=== PATIENT | male | born 1945 | race Caucasian/White ===

== ENCOUNTER 2018-01-08 07:58 | Outpatient (CLI) | payer OTHER, MEDICARE ==
[2018-01-08] VITALS (12 sets, daily range): BP systolic 119–161; BP diastolic 66–85
[~2018-01-08 07:58] MED LIST: ASPI-1071 PO; FLO0.4C PO; LISI-604 PO; METO-539 PO; MULT-1085 PO; TICA90TA PO; UBID1CAP PO; VILA40TA PO; ZOC40T PO
[2018-01-08] MEDS ORDERED: regadenoson 0.4mg/5ml syringe IV ONE ×2 (08:55→09:21)
[2018-01-08] MEDS ORDERED: nitroGLYCERIN 0.4mg SUBLingual tab SL PRN (09:00)
[2018-01-08] MEDS ORDERED: CAFFEINE CITRATE 60 MG/3 ML injection vial IV ONE ×2 (09:00→09:21)
[2018-01-08] MEDS ORDERED: CLOP75TA33 PO (11:39)
[2018-01-08] MEDS ORDERED: ROSU40TA PO (11:42)
[2018-01-08] MEDS ORDERED: LOSA50TA3 PO (11:42)
[2018-01-08] MEDS ORDERED: FLO0.4C PO (11:42)
== END 2018-01-08 23:59 | disposition home or self-care (01) ==
LOC: RAD 07:58
PROVIDERS: ATTEND Internal Medicine Interventional Cardiology
DX: I25.10 Atherosclerotic heart disease of native coronary artery without angina pectoris (principal); R53.83 Other fatigue; I10 Essential (primary) hypertension; G24.9 Dystonia, unspecified; Z88.5 Allergy status to narcotic agent; Z87.891 Personal history of nicotine dependence
CPT/HCPCS: 78452; 93017; A9500

== ENCOUNTER 2018-02-07 13:53 | Day surgery (SDC) | payer OTHER, MEDICARE ==
[2018-02-06 09:47] LABS: BASOPHILS % (AUTO) 0.5 % (0-1); EOSINOPHILS # (AUTO) 0.1 X10'3 (0-0.9); EOSINOPHILS % (AUTO) 2.4 % (0-6); HEMATOCRIT 46.3 % (42.0-52.0); HEMOGLOBIN 15.6 g/dl (14.0-17.9); LYMPHOCYTES # (AUTO) 0.9 X10'3 (1.1-4.8); LYMPHOCYTES % (AUTO) 23.2 % (21-51); MEAN CORPUSCULAR HGB CONC 33.8 % (33.0-36.5); MEAN CORPUSCULAR VOLUME 91.7 FL (78-98); MEAN PLATELET VOLUME 7.5 FL (7.4-10.4); MONOCYTES # (AUTO) 0.4 X10'3 (0-0.9); MONOCYTES % (AUTO) 10.4 % (2-12); NEUTROPHILS # (AUTO) 2.5 X10'3 (1.8-7.7); NEUTROPHILS % (AUTO) 63.5 % (42-75); PLATELET COUNT 247 X10'3 (140-440); RED BLOOD COUNT 5.05 X10'6 (4.70-6.10); RED CELL DISTRIBUTION WIDTH 13.7 % (11.5-14.5)
[2018-02-06 09:57] LABS: ALBUMIN 3.8 G/DL (3.4-5.0); ANION GAP 7 (8-16); BLOOD UREA NITROGEN 22 MG/DL (7-18); BUN/CREATININE RATIO 20.8 (5.4-32.0); CHLORIDE 102 MMOL/L (99-107); CREATININE 1.06 MG/DL (0.60-1.10); GLUCOSE 125 MG/DL (70-104); POTASSIUM 4.2 MMOL/L (3.5-5.1); SODIUM 137 MMOL/L (135-145); TOTAL CARBON DIOXIDE 28.3 MMOL/L (24-32); eGFR 69 ML/MIN
[2018-02-06 09:58] LABS: PARTIAL THROMBOPLASTIN TIME 26 SECONDS (22-32); PROTHROMBIN TIME 9.9 SECONDS (9.0-12.0)
[2018-02-07] VITALS (8 sets, daily range): BP systolic 117–150; BP diastolic 59–77
[~2018-02-07] VITALS: Ht 195.6 cm; Wt 98.7 kg
[~2018-02-07 13:53] MED LIST changes: -ASPI-1071 PO; +CLOP75TA33 PO; -LISI-604 PO; +LOSA50TA3 PO; -METO-539 PO; -MULT-1085 PO; +ROSU40TA PO; -TICA90TA PO; -UBID1CAP PO; -ZOC40T PO
[2018-02-07] MEDS ORDERED: LORazepam 0.5 MG tablet PO PRN (14:15)
[2018-02-07] MEDS ORDERED: normal saline 1000ml 1,000 ML IV SCH (14:15)
[2018-02-07] MEDS ORDERED: diphenhydrAMINE 25mg capsule PO PRN (14:15)
[2018-02-07] MEDS ORDERED: ASPI81TA52 PO (14:26)
[2018-02-07] MEDS ORDERED: DIPH25CA83 PO (14:28)
[2018-02-07] MEDS ORDERED: RANI150T44 PO (14:28)
[2018-02-07] MEDS ORDERED: PRE5T PO (14:30)
[2018-02-07] MEDS ORDERED: fentaNYL/PF 50MCG/1 ML 2ML syringe ONE (16:18)
[2018-02-07] MEDS ORDERED: LIDOcaine 1% 30ml preserv. free vial ONE (16:18)
[2018-02-07] MEDS ORDERED: midazolam 2 mg/2 ml injection ONE (16:18)
[2018-02-07] MEDS ORDERED: iohexol 350MG/ML 100ml bottle IV ONE (16:19)
[2018-02-07] MEDS ORDERED: iohexol 350 MG/ML 50ML vial IV ONE ×2 (17:09→17:14)
[2018-02-07] MEDS ORDERED: HYDROcodone/acetaminophen 5mg/325mg tablet PO PRN (18:05)
[2018-02-07] MEDS ORDERED: ondansetron/PF 4mg/2ml inj IV PRN (18:05)
[2018-02-07] MEDS ORDERED: proCHLORperazine 10 MG/2 ml inj IV PRN (18:15)
[2018-02-07] MEDS ORDERED: HYDROcodone/acetaminophen 10/325mg tab PO PRN (18:15)
[2018-02-07] MEDS ORDERED: OXAZEpam 15mg capsule PO PRN (18:15)
[2018-02-07] MEDS ORDERED: nitroGLYCERIN 0.4mg SUBLingual tab SL PRN (18:15)
== END 2018-02-07 20:10 | disposition home or self-care (01) ==
LOC: SSTAY O 13:53
PROVIDERS: ATTEND Internal Medicine Interventional Cardiology
DX: I25.810 Atherosclerosis of coronary artery bypass graft(s) without angina pectoris (principal); I10 Essential (primary) hypertension; I65.23 Occlusion and stenosis of bilateral carotid arteries; E78.4 Other hyperlipidemia; I44.0 Atrioventricular block, first degree; M19.90 Unspecified osteoarthritis, unspecified site; F32.9 Major depressive disorder, single episode, unspecified; Z86.74 Personal history of sudden cardiac arrest; Z86.14 Personal history of Methicillin resistant Staphylococcus aureus infection; Z86.73 Personal history of transient ischemic attack (TIA), and cerebral infarction without residual deficits; Z95.5 Presence of coronary angioplasty implant and graft; Z79.82 Long term (current) use of aspirin; Z79.01 Long term (current) use of anticoagulants; Z79.891 Long term (current) use of opiate analgesic; Z72.89 Other problems related to lifestyle; Z88.0 Allergy status to penicillin; Z88.3 Allergy status to other anti-infective agents; Z95.1 Presence of aortocoronary bypass graft; Z87.891 Personal history of nicotine dependence; Z85.038 Personal history of other malignant neoplasm of large intestine; Z90.49 Acquired absence of other specified parts of digestive tract; Z79.899 Other long term (current) drug therapy; Z98.890 Other specified postprocedural states
CPT/HCPCS: 36415; 80048; 85025; 85610; 85730; 93005; 93459; 99152; 99153; A6257; C1769; J1644; J2250; J3010; J3490; J7030; Q0163; Q9967; A4620

== ENCOUNTER 2018-04-16 11:05 | Outpatient (CLI) | payer OTHER, MEDICARE ==
[~2018-04-16 11:05] MED LIST changes: +ASPI81TA52 PO; +DIPH25CA83 PO; +PRE5T PO; +RANI150T44 PO
[2018-04-16 13:37] LABS: ALANINE AMINOTRANSFERASE 53 U/L (12-78); ALBUMIN 3.7 G/DL (3.4-5.0); ALBUMIN/GLOBULIN RATIO 1.1 (1.1-1.5); ALKALINE PHOSPHATASE 78 IU/L (46-116); ANION GAP 5 (8-16); ASPARTATE AMINO TRANSFERASE 25 U/L (10-37); BILIRUBIN,TOTAL 0.7 MG/DL (0.1-1.0); BLOOD UREA NITROGEN 19 MG/DL (7-18); BUN/CREATININE RATIO 18.8 (5.4-32.0); CALCIUM 9.1 MG/DL (8.5-10.1); CHLORIDE 105 MMOL/L (99-107); CREATININE 1.01 MG/DL (0.60-1.10); GLUCOSE 94 MG/DL (70-104); POTASSIUM 4.3 MMOL/L (3.5-5.1); SODIUM 141 MMOL/L (135-145); TOTAL CARBON DIOXIDE 31.4 MMOL/L (24-32); eGFR 73 ML/MIN
== END 2018-04-16 23:59 | disposition home or self-care (01) ==
LOC: VAS 11:05
PROVIDERS: ATTEND Internal Medicine Interventional Cardiology
DX: I65.23 Occlusion and stenosis of bilateral carotid arteries (principal)
CPT/HCPCS: 36415; 80053; 93880

== ENCOUNTER 2018-04-16 11:15 | Outpatient (CLI) | payer OTHER, MEDICARE ==
[2018-04-16 13:21] LABS: CHOL/HDL RATIO 2.5 (0.00-4.99); CHOLESTEROL 149 MG/DL (0-200); HDL CHOLESTEROL 60 MG/DL (35-60); LDL CHOLESTEROL 69 MG/DL (50-100); TRIGLYCERIDES 87 MG/DL (20-135)
[2018-04-18 05:24] LABS: PSA, ULTRASENSITIVE W/O SERIAL 3.22 ng/mL (0.000-4.000)
[2018-04-18 08:19] LABS: CARCINOEMBRYONIC ANTIGEN 1.1 ng/mL (0.0-4.7)
== END 2018-04-16 23:59 | disposition home or self-care (01) ==
LOC: LAB 11:15
DX: Z12.5 Encounter for screening for malignant neoplasm of prostate (principal); I10 Essential (primary) hypertension; E78.5 Hyperlipidemia, unspecified; I25.2 Old myocardial infarction; Z85.038 Personal history of other malignant neoplasm of large intestine; Z91.041 Radiographic dye allergy status; Z88.0 Allergy status to penicillin
CPT/HCPCS: 36415; 80061; 82378; 84153

== ENCOUNTER 2018-08-13 14:31 | Outpatient (CLI) | payer OTHER, MEDICARE | END 2018-08-13 23:59 | disposition home or self-care (01) | LOC: RAD 14:31 | PROVIDERS: ATTEND Family Medicine | DX: S43.421A Sprain of right rotator cuff capsule, initial encounter (principal); I25.2 Old myocardial infarction; I10 Essential (primary) hypertension; Z98.890 Other specified postprocedural states; Z87.891 Personal history of nicotine dependence; Z72.89 Other problems related to lifestyle; Z88.0 Allergy status to penicillin; Z91.041 Radiographic dye allergy status; X58.XXXA Exposure to other specified factors, initial encounter; Y93.89 Activity, other specified; Y92.89 Other specified places as the place of occurrence of the external cause; Y99.8 Other external cause status | CPT/HCPCS: 73030 ==

== ENCOUNTER → 2018-12-07 | Day surgery (SDC) | payer OTHER ==
[~2018-12-07] MED LIST changes: +LIDOcaine 1%/PF 5ML 10 MG/ML VIAL SQ ONE; +RANI-648 PO; -RANI150T44 PO; +gadopentetate dimeglumine 7.5 MMOL/15 ML syringe IV ONE; +iohexol 300 MG/1 ML 10ml vial IV ONE
== END | disposition home or self-care (01) ==
LOC: RAD 09:44
PROVIDERS: ATTEND Orthopaedic Surgery
DX: M25.511 Pain in right shoulder (principal)
CPT/HCPCS: 23350; 73040; 73222; A9579; Q9967

== ENCOUNTER 2019-03-13 05:31 | Day surgery (SDC) | payer OTHER ==
[2019-03-05 14:28] LABS: BASOPHILS % (AUTO) 0.6 % (0-1); EOSINOPHILS # (AUTO) 0.1 X10'3 (0-0.9); EOSINOPHILS % (AUTO) 1.6 % (0-6); LYMPHOCYTES # (AUTO) 1.3 X10'3 (1.1-4.8); LYMPHOCYTES % (AUTO) 20.9 % (21-51); MEAN CORPUSCULAR HEMOGLOBIN 30.8 PG (27.0-31.0); MEAN CORPUSCULAR HGB CONC 33.8 g/dL (33.0-36.5); MEAN PLATELET VOLUME 7.6 FL (7.4-10.4); MONOCYTES # (AUTO) 0.6 X10'3 (0-0.9); MONOCYTES % (AUTO) 10.4 % (2-12); NEUTROPHILS % (AUTO) 66.5 % (42-75); PRE OP HEMATOCRIT 45.5 % (42.0-52.0); PRE OP HEMOGLOBIN 15.4 g/dL (14.0-17.9); PRE OP PLATELET COUNT 237 X10'3 (140-440); RED CELL DISTRIBUTION WIDTH 13.7 % (11.5-14.5)
[2019-03-05 14:30] LABS: ALBUMIN 3.9 G/DL (3.4-5.0); ALBUMIN/GLOBULIN RATIO 1.3 (1.1-1.5); ALKALINE PHOSPHATASE 75 IU/L (46-116); BLOOD UREA NITROGEN 17 MG/DL (7-18); BUN/CREATININE RATIO 17.5 (5.4-32.0); CALCIUM 8.6 MG/DL (8.5-10.1); CHLORIDE 108 MMOL/L (99-107); CREATININE 0.97 MG/DL (0.60-1.10); PRE OP ALT 60 U/L (30-65); PRE OP ANION GAP 7 (8-16); PRE OP AST 25 U/L (10-37); PRE OP BILIRUB, TOTAL 0.6 MG/DL (0.0-1.0); PRE OP GLUCOSE 92 MG/DL (70-104); PRE OP POTASSIUM 4.1 MMOL/L (3.4-5.1); PRE OP SODIUM 143 MMOL/L (135-145); TOTAL PROTEIN 6.9 G/DL (6.4-8.2); eGFR 76 ML/MIN
[2019-03-13] VITALS (11 sets, daily range): BP systolic 103–133; BP diastolic 58–81
[~2019-03-13] VITALS: Ht 195.6 cm; Wt 97.7 kg
[~2019-03-13 05:31] MED LIST changes: -CLOP75TA33 PO; -DIPH25CA83 PO; -LIDOcaine 1%/PF 5ML 10 MG/ML VIAL SQ ONE; -PRE5T PO; -RANI-648 PO; -VILA40TA PO; +cefazolin/dext.iso 2gm/50ml 50 ML IV ONE; +famotidine 20mg tablet PO ONE; -gadopentetate dimeglumine 7.5 MMOL/15 ML syringe IV ONE; -iohexol 300 MG/1 ML 10ml vial IV ONE; +oxyCODONE SR 10mg (sust. release) tab PO ONE; +ringers solution, lacted 1,000 ML IV SCH; +vancomycin inj 1,500 MG in normal saline 300ml IV soln IV ONE
[2019-03-13] MEDS ORDERED: LIDOcaine 1% (10mg/ml) 2ml vial ONE (06:06)
[2019-03-13] MEDS ORDERED: BUPIVAcaine/PF 2.5 mg/ml (0.25%) 30ml vial ONE (07:02)
[2019-03-13] MEDS ORDERED: epiNEPHrine 1 mg/ml inj ONE (07:02)
[2019-03-13] MEDS ORDERED: cloNIDine hcl/PF 100mcg/ml inj ONE (07:14)
[2019-03-13] MEDS ORDERED: ROPIVAcaine 0.5% (5mg/ml) 30ml vial ONE (07:14)
[2019-03-13] MEDS ORDERED: MIDAZolam 5mg/5ml vial ONE (07:16)
[2019-03-13] MEDS ORDERED: fentaNYL/PF 50MCG/1 ML 2ML syringe ONE (07:16)
[2019-03-13] MEDS ORDERED: Thrombin (Bovine) 5,000 unit vial TP ONE (09:00)
[2019-03-13] MEDS ORDERED: ringers solution, lacted 1,000 ML IV SCH (09:18)
[2019-03-13] MEDS ORDERED: ondansetron/PF 4mg/2ml inj IV PRN (09:20)
[2019-03-13] MEDS ORDERED: proCHLORperazine 10 MG/2 ml inj IV PRN (09:20)
[2019-03-13] MEDS ORDERED: morphine 4 MG/ML inj SYRINge IV PRN ×2 (09:20)
[2019-03-13] MEDS ORDERED: meperidine/PF 25mg/ml syringe IV PRN ×3 (09:20)
[2019-03-13] MEDS ORDERED: propofol inj 20 ML IV ONE (09:44)
[2019-03-13] MEDS ORDERED: rocuronium 10mg/ml inj IV ONE (09:44)
--- NOTE | 2019-03-13 10:05 | NUR ---
Received from OR via BED , accompanied by Anesthesiologist DR NATARAJAN and report given by Anesthesiolgist. PATIENT WAKING UP, DENIES PAIN, V/S WNL, NEUROVASCULAR CHECKS INTACT, 20G PIV LUE , DRESSING TO RIGHT SHOULDER CDI W/ SLING IMMOBILIZER ON AND COLD POWDER PACK W/ SCD ON.
--- NOTE | 2019-03-13 11:25 | NUR ---
PATIENT A&OX4, DENIES PAIN, V/S WNL, NEUROVASCULAR CHECKS INTACT, 20G PIV D/C WITH NO COMPLICATIONS OBSERVED , DRESSING TO RIGHT SHOULDER DRESSING CDI W/ COLD POWDER PACK AND IMMOBILIZER SLING , SCD OFF. I HAVE REVIEWED D/C INSTRUCTIONS WITH PATIENT AND FAMILY AND THEY HAVE VERBALIZED UNDERSTANDING. PATIENT D/C HOME WITH ALL BELONGINGS AND FAMILY GAVE TRANSPORT HOME.
== END 2019-03-13 11:25 | disposition home or self-care (01) ==
LOC: PAS 05:31
PROVIDERS: ATTEND Orthopaedic Surgery
DX: S46.011A Strain of muscle(s) and tendon(s) of the rotator cuff of right shoulder, initial encounter (principal); S43.431A Superior glenoid labrum lesion of right shoulder, initial encounter; M75.41 Impingement syndrome of right shoulder; I10 Essential (primary) hypertension; I25.10 Atherosclerotic heart disease of native coronary artery without angina pectoris; Z95.5 Presence of coronary angioplasty implant and graft; Z87.891 Personal history of nicotine dependence; Z88.5 Allergy status to narcotic agent; Z88.0 Allergy status to penicillin; N40.0 Benign prostatic hyperplasia without lower urinary tract symptoms; I69.351 Hemiplegia and hemiparesis following cerebral infarction affecting right dominant side; G89.18 Other acute postprocedural pain; Z86.14 Personal history of Methicillin resistant Staphylococcus aureus infection; X58.XXXA Exposure to other specified factors, initial encounter; Y93.89 Activity, other specified; Y92.89 Other specified places as the place of occurrence of the external cause; Y99.8 Other external cause status
CPT/HCPCS: 29822; 29824; 29826; 29827; 36415; 64415; 80053; 82948; 85025; C1713; J0171; J0735; J2001; J2250; J2270; J2704; J3010; J3370; J3490; A4215; A4565; A4618; A6449; A7000; J2795; J7120

== ENCOUNTER 2020-03-18 12:37 | Outpatient (CLI) | payer BC ==
[~2020-03-18 12:37] MED LIST changes: -cefazolin/dext.iso 2gm/50ml 50 ML IV ONE; -famotidine 20mg tablet PO ONE; -oxyCODONE SR 10mg (sust. release) tab PO ONE; -ringers solution, lacted 1,000 ML IV SCH; -vancomycin inj 1,500 MG in normal saline 300ml IV soln IV ONE
== END 2020-03-18 23:59 | disposition home or self-care (01) ==
LOC: VAS 12:37 → EEVIPCON 13:00 → VAS 23:59
PROVIDERS: ATTEND Nurse Practitioner Family
DX: I08.0 Rheumatic disorders of both mitral and aortic valves (principal); I65.23 Occlusion and stenosis of bilateral carotid arteries; I10 Essential (primary) hypertension
CPT/HCPCS: 93306; 93880

== ENCOUNTER 2020-08-19 11:07 | Outpatient (CLI) | payer BC ==
[2020-08-19 11:57] LABS: BASOPHILS % (AUTO) 0.6 % (0-1); EOSINOPHILS # (AUTO) 0.1 X10'3 (0-0.9); EOSINOPHILS % (AUTO) 1.8 % (0-6); HEMATOCRIT 48.5 % (42.0-52.0); HEMOGLOBIN 16.1 g/dl (14.0-17.9); LYMPHOCYTES # (AUTO) 1.2 X10'3 (1.1-4.8); LYMPHOCYTES % (AUTO) 21.3 % (21-51); MEAN CORPUSCULAR HEMOGLOBIN 30.1 PG (27.0-31.0); MEAN CORPUSCULAR HGB CONC 33.3 g/dL (33.0-36.5); MEAN CORPUSCULAR VOLUME 90.6 FL (78-98); MEAN PLATELET VOLUME 8.1 FL (7.4-10.4); MONOCYTES # (AUTO) 0.6 X10'3 (0-0.9); MONOCYTES % (AUTO) 10.8 % (2-12); NEUTROPHILS # (AUTO) 3.6 X10'3 (1.8-7.7); NEUTROPHILS % (AUTO) 65.5 % (42-75); PLATELET COUNT 254 X10'3 (140-440); RED BLOOD COUNT 5.35 X10'6 (4.70-6.10); RED CELL DISTRIBUTION WIDTH 13.7 % (11.5-14.5); WHITE BLOOD COUNT 5.5 X10'3 (4.5-11.0)
[2020-08-19 12:19] LABS: ALANINE AMINOTRANSFERASE 51 U/L (12-78); ALBUMIN/GLOBULIN RATIO 1.3 (1.1-1.5); ALKALINE PHOSPHATASE 81 IU/L (46-116); ANION GAP 7 (8-16); ASPARTATE AMINO TRANSFERASE 26 U/L (10-37); BILIRUBIN,TOTAL 0.7 MG/DL (0.1-1.0); BLOOD UREA NITROGEN 23 MG/DL (7-18); BUN/CREATININE RATIO 22.5 (5.4-32.0); CALCIUM 9.2 MG/DL (8.5-10.1); CHLORIDE 108 MMOL/L (99-107); CHOL/HDL RATIO 2.6 (0.00-4.99); CHOLESTEROL 155 MG/DL (0-200); CREATININE 1.02 MG/DL (0.60-1.10); GLUCOSE 97 MG/DL (70-104); HDL CHOLESTEROL 59 MG/DL (35-60); LDL CHOLESTEROL 76 MG/DL (50-100); POTASSIUM 4.3 MMOL/L (3.5-5.1); SODIUM 143 MMOL/L (135-145); TOTAL CARBON DIOXIDE 27.8 MMOL/L (24-32); TOTAL PROTEIN 7.2 G/DL (6.4-8.2); TRIGLYCERIDES 98 MG/DL (20-135); eGFR 71 ML/MIN
[2020-08-19 12:34] LABS: C-REACTIVE PROTEIN < 0.05 MG/DL (0.0-0.5)
[2020-08-20 15:12] LABS: % FREE PSA 18.3 % (.); CARCINOEMBRYONIC ANTIGEN 1.5 ng/mL (0.0-4.7); PSA, FREE 0.75 ng/mL
== END 2020-08-19 23:59 | disposition home or self-care (01) ==
LOC: LAB 11:07
PROVIDERS: ATTEND Family Medicine
DX: C18.2 Malignant neoplasm of ascending colon (principal); I10 Essential (primary) hypertension; N40.1 Benign prostatic hyperplasia with lower urinary tract symptoms; E55.9 Vitamin D deficiency, unspecified; K21.9 Gastro-esophageal reflux disease without esophagitis; I25.10 Atherosclerotic heart disease of native coronary artery without angina pectoris; R53.82 Chronic fatigue, unspecified
CPT/HCPCS: 36415; 80053; 80061; 82043; 82306; 82378; 82570; 82607; 82652; 82746; 83970; 84153; 84154; 84439; 84443; 85025; 86140

== ENCOUNTER 2020-08-26 08:11 | Day surgery (SDC) | payer BC ==
[~2020-08-26] VITALS: Ht 195.6 cm; Wt 98.6 kg
[2020-08-26 08:21] VITALS: BP 140/79
[2020-08-26] MEDS ORDERED: fentaNYL/PF 50MCG/1 ML 2ML syringe ONE ×2 (08:25→10:33)
[2020-08-26] MEDS ORDERED: MIDAZolam 1 MG/ML 5ML VIAL ONE (08:26)
[2020-08-26] MEDS ORDERED: LIDOcaine Viscous 15ml cup ONE (09:37)
[2020-08-26 10:45] VITALS: BP 134/60
[2020-08-26 10:55] VITALS: BP 125/67
[2020-08-26 11:05] VITALS: BP 129/60
[2020-08-26 11:15] VITALS: BP 150/85
== END 2020-08-26 11:30 | disposition home or self-care (01) ==
LOC: GI LAB 08:11
PROVIDERS: ATTEND Internal Medicine Gastroenterology
DX: Z12.11 Encounter for screening for malignant neoplasm of colon (principal); K29.50 Unspecified chronic gastritis without bleeding; K44.9 Diaphragmatic hernia without obstruction or gangrene; K21.00 Gastro-esophageal reflux disease with esophagitis, without bleeding; K31.89 Other diseases of stomach and duodenum; D12.3 Benign neoplasm of transverse colon; K56.2 Volvulus; K57.30 Diverticulosis of large intestine without perforation or abscess without bleeding; I10 Essential (primary) hypertension; I25.2 Old myocardial infarction; Z95.1 Presence of aortocoronary bypass graft; Z85.038 Personal history of other malignant neoplasm of large intestine; Z90.49 Acquired absence of other specified parts of digestive tract; Z98.0 Intestinal bypass and anastomosis status; Z79.899 Other long term (current) drug therapy; Z80.0 Family history of malignant neoplasm of digestive organs
CPT/HCPCS: 43239; 45380; 45381; 45385; 99152; 99153; C1773; J2250; J3010; J7040; 45335; A4620

== ENCOUNTER 2021-08-31 13:13 | Outpatient (CLI) | payer BC ==
[~2021-08-31 13:13] MED LIST changes: +VILA40TA PO
[2021-08-31 14:16] LABS: BASOPHILS % (AUTO) 0.7 % (0-1); EOSINOPHILS # (AUTO) 0.1 X10'3 (0-0.9); EOSINOPHILS % (AUTO) 1.6 % (0-6); HEMATOCRIT 46.4 % (42.0-52.0); HEMOGLOBIN 15.5 g/dl (14.0-17.9); LYMPHOCYTES # (AUTO) 1.1 X10'3 (1.1-4.8); LYMPHOCYTES % (AUTO) 18.8 % (21-51); MEAN CORPUSCULAR HEMOGLOBIN 29.6 PG (27.0-31.0); MEAN CORPUSCULAR HGB CONC 33.3 g/dL (33.0-36.5); MEAN CORPUSCULAR VOLUME 88.9 FL (78-98); MONOCYTES # (AUTO) 0.6 X10'3 (0-0.9); MONOCYTES % (AUTO) 9.7 % (2-12); NEUTROPHILS # (AUTO) 4.2 X10'3 (1.8-7.7); NEUTROPHILS % (AUTO) 69.2 % (42-75); PLATELET COUNT 233 X10'3 (140-440); RED BLOOD COUNT 5.22 X10'6 (4.70-6.10); RED CELL DISTRIBUTION WIDTH 13.5 % (11.5-14.5); WHITE BLOOD COUNT 6.1 X10'3 (4.5-11.0)
[2021-08-31 14:43] LABS: ALANINE AMINOTRANSFERASE 52 U/L (12-78); ALBUMIN 3.8 G/DL (3.4-5.0); ALBUMIN/GLOBULIN RATIO 1.3 (1.1-1.5); ALKALINE PHOSPHATASE 77 IU/L (46-116); ANION GAP 8 (8-16); ASPARTATE AMINO TRANSFERASE 25 U/L (10-37); BILIRUBIN,TOTAL 0.6 MG/DL (0.1-1.0); BLOOD UREA NITROGEN 18 MG/DL (7-18); BUN/CREATININE RATIO 17.8 (5.4-32.0); C-REACTIVE PROTEIN 0.14 MG/DL (0.0-0.5); CALCIUM 8.9 MG/DL (8.5-10.1); CHLORIDE 105 MMOL/L (99-107); CHOL/HDL RATIO 2.8 (0.00-4.99); CHOLESTEROL 159 MG/DL (0-200); CREATININE 1.01 MG/DL (0.60-1.10); GLUCOSE 120 MG/DL (70-104); HDL CHOLESTEROL 56 MG/DL (35-60); LDL CHOLESTEROL 76 MG/DL (50-100); POTASSIUM 4.1 MMOL/L (3.5-5.1); SODIUM 140 MMOL/L (135-145); TOTAL CARBON DIOXIDE 27.2 MMOL/L (24-32); TOTAL PROTEIN 6.8 G/DL (6.4-8.2); TRIGLYCERIDES 147 MG/DL (20-135); eGFR 72 ML/MIN
== END 2021-08-31 23:59 | disposition home or self-care (01) ==
LOC: LAB 13:13
PROVIDERS: ATTEND Family Medicine
DX: Z00.00 Encounter for general adult medical examination without abnormal findings (principal); E55.9 Vitamin D deficiency, unspecified; I10 Essential (primary) hypertension; I25.10 Atherosclerotic heart disease of native coronary artery without angina pectoris; E78.5 Hyperlipidemia, unspecified
CPT/HCPCS: 36415; 80053; 80061; 82043; 82306; 82378; 82570; 82607; 82746; 84153; 84154; 84439; 84443; 85025; 85651; 86140

== ENCOUNTER → 2021-10-06 | Day surgery (SDC) | payer BC ==
[2021-09-30 10:55] LABS: BASOPHILS % (AUTO) 0.6 % (0-1); EOSINOPHILS # (AUTO) 0.1 X10'3 (0-0.9); EOSINOPHILS % (AUTO) 2.1 % (0-6); LYMPHOCYTES # (AUTO) 1.1 X10'3 (1.1-4.8); LYMPHOCYTES % (AUTO) 16.9 % (21-51); MEAN CORPUSCULAR HEMOGLOBIN 30.1 PG (27.0-31.0); MEAN CORPUSCULAR HGB CONC 33.7 g/dL (33.0-36.5); MEAN CORPUSCULAR VOLUME 89.1 FL (78-98); MEAN PLATELET VOLUME 7.5 FL (7.4-10.4); MONOCYTES # (AUTO) 0.6 X10'3 (0-0.9); MONOCYTES % (AUTO) 9.4 % (2-12); NEUTROPHILS # (AUTO) 4.5 X10'3 (1.8-7.7); PRE OP HEMATOCRIT 45.2 % (42.0-52.0); PRE OP HEMOGLOBIN 15.2 g/dL (14.0-17.9); PRE OP PLATELET COUNT 312 X10'3 (140-440); RED BLOOD COUNT 5.07 X10'6 (4.70-6.10); RED CELL DISTRIBUTION WIDTH 13.6 % (11.5-14.5)
[2021-09-30 11:00] LABS: CLARITY,URINE CLEAR (Clear); COLOR,URINE YELLOW (Yellow); GLUCOSE, URINE NEGATIVE (Neg); KETONES,URINE NEGATIVE (Neg); LEUKOCYTE ESTERASE ,URINE NEGATIVE (Neg); NITRITES, URINE NEGATIVE (Neg); OCCULT BLOOD,URINE NEGATIVE (Neg); PROTEIN,URINE NEGATIVE (Neg); UROBILINOGEN,URINE 0.2 E.U/dL (0.2-1.0)
[2021-09-30 11:10] LABS: ALBUMIN 3.6 G/DL (3.4-5.0); ALBUMIN/GLOBULIN RATIO 1.1 (1.1-1.5); ALKALINE PHOSPHATASE 88 IU/L (46-116); BLOOD UREA NITROGEN 24 MG/DL (7-18); BUN/CREATININE RATIO 24.2 (5.4-32.0); CALCIUM 8.2 MG/DL (8.5-10.1); CHLORIDE 108 MMOL/L (99-107); CREATININE 0.99 MG/DL (0.60-1.10); PRE OP ALT 42 U/L (30-65); PRE OP ANION GAP 8 (8-16); PRE OP AST 18 U/L (10-37); PRE OP BILIRUB, TOTAL 0.7 MG/DL (0.0-1.0); PRE OP GLUCOSE 98 MG/DL (70-104); PRE OP POTASSIUM 4.3 MMOL/L (3.4-5.1); PRE OP SODIUM 143 MMOL/L (135-145); TOTAL CARBON DIOXIDE 27.3 MMOL/L (24-32); eGFR 74 ML/MIN
[2021-09-30 11:13] LABS: UA COLLECTION TYPE VOIDED
[~2021-10-06] VITALS: Ht 195.6 cm; Wt 97.4 kg
[2021-10-06] VITALS (24 sets, daily range): BP systolic 90–142; BP diastolic 48–79
[~2021-10-06] MED LIST changes: +BUPIVAcaine 0.5% inj/PF 0 ML ONE; +BUPIVAcaine 0.5% inj/PF 30 ML ONE; +BUPIVAcaine 0.5% inj/PF 30 ml vial IJ ONE; +CHOL500044 PO; +HYDROcodone/acetaminophen 10/325mg tab PO ONE; +LIDOcaine 2% (20mg/ml) 5ml vial ONE; +LIDOcaine 2% 10ml TOPICAL JELLY (Urojet) MM ONE; +MULT-1085 PO; +acetaminophen 1,000mg/100ml IV 100 ML IV ONE; +clindamycin-Cleocin 900mg/D5W 50 ML IV ONE; +dexamethasone sod phosphate 10mg/ml inj ONE; +famotidine 20mg tablet PO ONE; +fentaNYL/PF 50MCG/1 ML 2ML syringe ONE; +glycopyrrolate 0.2mg/ml inj ONE; +meperidine/PF 25mg/ml syringe IV PRN; +meperidine/PF 25mg/ml syringe ONE; +midazolam 1 mg/ML 2ml injection ONE; +morphine 2 MG/ML inj. syringe IV PRN; +morphine 4 MG/ML inj SYRINge IV PRN; +neostigmine methylsulfate 1 MG/ML 10ml vial ONE; +ondansetron/PF 4mg/2ml inj IV PRN; +ondansetron/PF 4mg/2ml inj ONE; +proCHLORperazine 10 MG/2 ml inj IV PRN; +propofol inj 20 ML IV ONE; +ringers solution, lacted 1,000 ML IV SCH; +rocuronium 10mg/ml inj IV ONE; +sevoflurane 250ml liquid IH ONE
--- NOTE | 2021-10-06 14:10 | NUR ---
Received from OR via JANEE , accompanied by Anesthesiologist WALTER and report given by Anesthesiolgist. PATIENT WITH 20G PIV IN LEFT UE RUNNING LR AT 100.VSS. DENIES PAIN AT THIS TIME AND 10L MASK ON WITH 100% SATURATIONS. Addendum: 10/06/21 at 1423 by Ralph Lyles RN, RN Amended: Links added.
[2021-10-06] MEDS: meperidine/PF 25mg/ml syringe IV PRN ×2 (14:41→14:57)
--- NOTE | 2021-10-06 18:00 | NUR ---
ALL DISCHARGE CRITERIA HAS BEEN MET. VSS, PAIN AT A TOLERABLE LEVEL, VOIDING VIA CATHETER AND ABLE TO SAFELY AMBULATE AND TRANSFER SELF. IV TAKEN OUT WITHOUT ANY COMPLICATIONS. ALL DISCHARGE INSTRUCTIONS COVERED WITH PATIENT AND ALL QUESTIONS ANSWERED. PATIENT TAKEN OUT VIA WHEELCHAIR TO PERSONAL VEHICLE WHERE FAMILY/FRIEND DROVE PATIENT HOME. PATIENT GIVEN ALL DC PAPERWORK AND ARCE CATHETER INSTRUCTIONS AND ARCE CLEANSING WIPES. Addendum: 10/06/21 at 2 by Ralph Lyles RN, RN Amended: Links added.
== END | disposition home or self-care (01) ==
LOC: PAS 08:50 → MERGE 12:00
PROVIDERS: ATTEND Surgery
DX: K40.90 Unilateral inguinal hernia, without obstruction or gangrene, not specified as recurrent (principal); I25.10 Atherosclerotic heart disease of native coronary artery without angina pectoris; I10 Essential (primary) hypertension; E78.5 Hyperlipidemia, unspecified; N40.0 Benign prostatic hyperplasia without lower urinary tract symptoms; K21.9 Gastro-esophageal reflux disease without esophagitis; F32.A Depression, unspecified; M12.819 Other specific arthropathies, not elsewhere classified, unspecified shoulder; Z85.828 Personal history of other malignant neoplasm of skin; Z98.890 Other specified postprocedural states; Z90.49 Acquired absence of other specified parts of digestive tract; Z95.1 Presence of aortocoronary bypass graft; Z87.891 Personal history of nicotine dependence; Z86.14 Personal history of Methicillin resistant Staphylococcus aureus infection; Z88.0 Allergy status to penicillin; Z88.8 Allergy status to other drugs, medicaments and biological substances; Z20.822 Contact with and (suspected) exposure to COVID-19; Z80.0 Family history of malignant neoplasm of digestive organs
CPT/HCPCS: 36415; 49650; 80053; 81003; 82948; 85025; 93005; C1758; C1781; J0131; J1100; J2175; J2250; J2270; J2405; J2704; J2710; J3010; J3490; J7030; J7120; S0020; S2900; U0003; U0005; Z7506; Z7508; Z7512; A4215; A4618

== ENCOUNTER 2021-12-24 14:33 | Outpatient (CLI) | payer BC ==
[~2021-12-24 14:33] MED LIST changes: -BUPIVAcaine 0.5% inj/PF 0 ML ONE; -BUPIVAcaine 0.5% inj/PF 30 ML ONE; -BUPIVAcaine 0.5% inj/PF 30 ml vial IJ ONE; -HYDROcodone/acetaminophen 10/325mg tab PO ONE; -LIDOcaine 2% (20mg/ml) 5ml vial ONE; -LIDOcaine 2% 10ml TOPICAL JELLY (Urojet) MM ONE; -acetaminophen 1,000mg/100ml IV 100 ML IV ONE; -clindamycin-Cleocin 900mg/D5W 50 ML IV ONE; -dexamethasone sod phosphate 10mg/ml inj ONE; -famotidine 20mg tablet PO ONE; -fentaNYL/PF 50MCG/1 ML 2ML syringe ONE; -glycopyrrolate 0.2mg/ml inj ONE; -meperidine/PF 25mg/ml syringe IV PRN; -meperidine/PF 25mg/ml syringe ONE; -midazolam 1 mg/ML 2ml injection ONE; -morphine 2 MG/ML inj. syringe IV PRN; -morphine 4 MG/ML inj SYRINge IV PRN; -neostigmine methylsulfate 1 MG/ML 10ml vial ONE; -ondansetron/PF 4mg/2ml inj IV PRN; -ondansetron/PF 4mg/2ml inj ONE; -proCHLORperazine 10 MG/2 ml inj IV PRN; -propofol inj 20 ML IV ONE; -ringers solution, lacted 1,000 ML IV SCH; -rocuronium 10mg/ml inj IV ONE; -sevoflurane 250ml liquid IH ONE
== END 2021-12-24 23:59 | disposition home or self-care (01) ==
LOC: CARD DIAG 14:33
PROVIDERS: ATTEND Family Medicine
DX: I08.8 Other rheumatic multiple valve diseases (principal); I77.810 Thoracic aortic ectasia; I25.810 Atherosclerosis of coronary artery bypass graft(s) without angina pectoris; Z95.1 Presence of aortocoronary bypass graft
CPT/HCPCS: 93306

== ENCOUNTER 2022-01-04 08:46 | Outpatient (CLI) | payer BC ==
[2022-01-04] VITALS (7 sets, daily range): BP systolic 126–150; BP diastolic 53–78
[~2022-01-04] VITALS: Ht 190.5 cm; Wt 95.0 kg
[2022-01-04] MEDS ORDERED: normal saline 500ml IV soln 500 ML IV ONE (09:25)
[2022-01-04] MEDS ORDERED: metoprolol tartrate 1mg/ml inj IV PRN (09:25)
[2022-01-04] MEDS ORDERED: nitroGLYCERIN 0.4mg SUBLingual tab SL PRN (09:25)
[2022-01-04] MEDS ORDERED: regadenoson 0.4mg/5ml syringe IV ONE (09:25)
[2022-01-04] MEDS ORDERED: aminophylline 500mg/20ml vial IV PRN (09:25)
== END 2022-01-04 23:59 | disposition home or self-care (01) ==
LOC: RAD 08:46
PROVIDERS: ATTEND Internal Medicine Interventional Cardiology
DX: I65.23 Occlusion and stenosis of bilateral carotid arteries (principal); R06.02 Shortness of breath; R53.83 Other fatigue; R42 Dizziness and giddiness
CPT/HCPCS: 78452; 93017; 93880; A9500; J0280; J2785; J7040

== ENCOUNTER 2022-04-06 08:29 | Day surgery (SDC) | payer BC ==
[~2022-04-06] VITALS: Ht 195.6 cm; Wt 95.4 kg
[2022-04-06 08:40] VITALS: BP 146/71
[2022-04-06] MEDS ORDERED: fentaNYL/PF 50MCG/1 ML 2ML syringe ONE (08:42)
[2022-04-06] MEDS ORDERED: MIDAZolam 1 MG/ML 5ML VIAL ONE (08:42)
[2022-04-06 09:48] VITALS: BP 99/58
[2022-04-06 09:58] VITALS: BP 107/57
[2022-04-06 10:08] VITALS: BP 107/56
[2022-04-06 10:18] VITALS: BP 116/51
== END 2022-04-06 10:50 | disposition home or self-care (01) ==
LOC: GI LAB 08:29
PROVIDERS: ATTEND Internal Medicine Gastroenterology
DX: Z08 Encounter for follow-up examination after completed treatment for malignant neoplasm (principal); D12.9 Benign neoplasm of anus and anal canal; K57.30 Diverticulosis of large intestine without perforation or abscess without bleeding; Z86.010 Personal history of colon polyps; Z85.038 Personal history of other malignant neoplasm of large intestine; Z98.0 Intestinal bypass and anastomosis status; Z79.899 Other long term (current) drug therapy; Z98.890 Other specified postprocedural states
CPT/HCPCS: 45380; 99152; 99153; J2250; J3010; J7030; Z7512; A4620

== ENCOUNTER 2022-10-19 10:45 | Outpatient (CLI) | payer BC ==
[~2022-10-19 10:45] MED LIST changes: +LOSA-416 PO; -LOSA50TA3 PO
[2022-10-19 11:27] LABS: BASOPHILS % (AUTO) 0.7 % (0-1); EOSINOPHILS # (AUTO) 0.1 X10'3 (0-0.9); EOSINOPHILS % (AUTO) 2.1 % (0-6); HEMATOCRIT 48.5 % (42.0-52.0); HEMOGLOBIN 16.3 g/dl (14.0-17.9); LYMPHOCYTES # (AUTO) 1.1 X10'3 (1.1-4.8); LYMPHOCYTES % (AUTO) 24.2 % (21-51); MEAN CORPUSCULAR HEMOGLOBIN 30.7 PG (27.0-31.0); MEAN CORPUSCULAR HGB CONC 33.7 g/dL (33.0-36.5); MEAN CORPUSCULAR VOLUME 90.9 FL (78-98); MEAN PLATELET VOLUME 7.8 FL (7.4-10.4); MONOCYTES # (AUTO) 0.6 X10'3 (0-0.9); MONOCYTES % (AUTO) 12.2 % (2-12); NEUTROPHILS # (AUTO) 2.8 X10'3 (1.8-7.7); NEUTROPHILS % (AUTO) 60.8 % (42-75); PLATELET COUNT 239 X10'3 (140-440); RED BLOOD COUNT 5.33 X10'6 (4.70-6.10); RED CELL DISTRIBUTION WIDTH 13.6 % (11.5-14.5); WHITE BLOOD COUNT 4.6 X10'3 (4.5-11.0)
[2022-10-19 11:50] LABS: ALANINE AMINOTRANSFERASE 60 U/L (12-78); ALBUMIN 3.8 G/DL (3.4-5.0); ALBUMIN/GLOBULIN RATIO 1.4 (1.1-1.5); ALKALINE PHOSPHATASE 94 IU/L (46-116); ANION GAP 4 (8-16); ASPARTATE AMINO TRANSFERASE 35 U/L (10-37); BILIRUBIN,TOTAL 0.7 MG/DL (0.1-1.0); BLOOD UREA NITROGEN 24 MG/DL (7-18); BUN/CREATININE RATIO 25.3 (10.0-20.0); CALCIUM 8.4 MG/DL (8.5-10.1); CHLORIDE 105 MMOL/L (99-107); CREATININE 0.95 MG/DL (0.60-1.10); GLUCOSE 96 MG/DL (70-104); POTASSIUM 4.6 MMOL/L (3.5-5.1); SODIUM 139 MMOL/L (135-145); TOTAL CARBON DIOXIDE 29.8 MMOL/L (24-32); TOTAL PROTEIN 6.6 G/DL (6.4-8.2); eGFR 77 ML/MIN
[2022-10-19 11:56] LABS: CHOL/HDL RATIO 4.3 (0.00-4.99); CHOLESTEROL 248 MG/DL (0-200); CREATINE KINASE 172 U/L (39-308); HDL CHOLESTEROL 58 MG/DL (35-60); LDL CHOLESTEROL 145 MG/DL (50-100); TRIGLYCERIDES 126 MG/DL (20-135)
== END 2022-10-19 23:59 | disposition home or self-care (01) ==
LOC: LAB 10:45
PROVIDERS: ATTEND Family Medicine
DX: E78.5 Hyperlipidemia, unspecified (principal); I10 Essential (primary) hypertension; R29.898 Other symptoms and signs involving the musculoskeletal system; I25.10 Atherosclerotic heart disease of native coronary artery without angina pectoris
CPT/HCPCS: 36415; 80053; 80061; 82043; 82550; 82570; 83880; 85025

== ENCOUNTER 2022-12-02 08:46 | Emergency (ER) | payer BC, OTHER ==
[~2022-12-02] VITALS: Ht 195.6 cm; Wt 105.0 kg
[2022-12-02 10:36] LABS: CLARITY,URINE CLEAR (Clear); COLOR,URINE YELLOW (Yellow); GLUCOSE, URINE NEGATIVE (Neg); KETONES,URINE NEGATIVE (Neg); LEUKOCYTE ESTERASE ,URINE NEGATIVE (Neg); NITRITES, URINE NEGATIVE (Neg); OCCULT BLOOD,URINE NEGATIVE (Neg); PH,URINE 5.5 (4.8-8.0); PROTEIN,URINE NEGATIVE (Neg); UROBILINOGEN,URINE 0.2 E.U/dL (0.2-1.0)
[2022-12-02 10:37] LABS: UA COLLECTION TYPE CLN CATCH MIDSTREAM
[2022-12-02] MEDS ORDERED: POLY119P2 PO (10:45)
[2022-12-02] MEDS ORDERED: OXYB5TAB16 PO (10:45)
[2022-12-02 10:49] VITALS: BP 136/74
== END 2022-12-02 10:50 | disposition home or self-care (01) ==
LOC: ER 08:47
DX: N32.89 Other specified disorders of bladder (principal); R33.9 Retention of urine, unspecified; I25.10 Atherosclerotic heart disease of native coronary artery without angina pectoris; E78.00 Pure hypercholesterolemia, unspecified; I10 Essential (primary) hypertension; G89.29 Other chronic pain; F41.9 Anxiety disorder, unspecified; F12.90 Cannabis use, unspecified, uncomplicated; Z72.89 Other problems related to lifestyle; Z95.1 Presence of aortocoronary bypass graft; Z98.890 Other specified postprocedural states; Z86.73 Personal history of transient ischemic attack (TIA), and cerebral infarction without residual deficits; Z88.0 Allergy status to penicillin; Z88.6 Allergy status to analgesic agent; Z79.82 Long term (current) use of aspirin; Z79.899 Other long term (current) drug therapy
CPT/HCPCS: 81003; 99284

== ENCOUNTER → 2023-02-17 | Outpatient (CLI) | payer BC, OTHER ==
[~2023-02-17] MED LIST changes: +OXYB5TAB16 PO; +POLY119P2 PO
== END | disposition home or self-care (01) ==
LOC: LAB 15:27
PROVIDERS: ATTEND Family Medicine
DX: N40.0 Benign prostatic hyperplasia without lower urinary tract symptoms (principal)
CPT/HCPCS: 36415; 84153

== ENCOUNTER 2023-07-25 09:55 | Outpatient (CLI) | payer BC, OTHER ==
[~2023-07-25 09:55] MED LIST changes: -OXYB5TAB16 PO; +OXYB5TAB21 PO
[2023-07-25 11:05] LABS: ANION GAP 7 (8-16); BILIRUBIN,TOTAL 0.6 MG/DL (0.1-1.0); BLOOD UREA NITROGEN 23 MG/DL (7-18); CALCIUM 8.5 MG/DL (8.5-10.1); CHLORIDE 105 MMOL/L (99-107); CREATININE 0.96 MG/DL (0.60-1.10); GLUCOSE 94 MG/DL (70-104); POTASSIUM 4.1 MMOL/L (3.5-5.1); SODIUM 144 MMOL/L (135-145); TOTAL CARBON DIOXIDE 31.6 MMOL/L (24-32); TOTAL PROTEIN 6.8 G/DL (6.4-8.2); eGFR 76 ML/MIN
[2023-07-25 11:06] LABS: ALANINE AMINOTRANSFERASE 38 U/L (12-78); ALBUMIN 3.7 G/DL (3.4-5.0); ALBUMIN/GLOBULIN RATIO 1.2 (1.1-1.5); ALKALINE PHOSPHATASE 73 IU/L (46-116); ASPARTATE AMINO TRANSFERASE 18 U/L (10-37); CHOL/HDL RATIO 2.4 (0.00-4.99); CHOLESTEROL 132 MG/DL (0-200); HDL CHOLESTEROL 55 MG/DL (35-60); LDL CHOLESTEROL 59 MG/DL (50-100); TRIGLYCERIDES 92 MG/DL (20-135)
== END 2023-07-25 23:59 | disposition home or self-care (01) ==
LOC: LAB 09:55
PROVIDERS: ATTEND Internal Medicine Interventional Cardiology
DX: E78.49 Other hyperlipidemia (principal); I10 Essential (primary) hypertension
CPT/HCPCS: 36415; 80053; 80061

== ENCOUNTER 2023-12-15 16:17 | Outpatient (CLI) | payer BC, OTHER | END 2023-12-15 23:59 | disposition home or self-care (01) | LOC: MRI 16:17 | PROVIDERS: ATTEND Family Medicine | DX: M47.817 Spondylosis without myelopathy or radiculopathy, lumbosacral region (principal); M48.07 Spinal stenosis, lumbosacral region; M51.27 Other intervertebral disc displacement, lumbosacral region; M54.41 Lumbago with sciatica, right side; M54.42 Lumbago with sciatica, left side; G89.29 Other chronic pain | CPT/HCPCS: 72148 ==